=== PATIENT | male | born 1970 | race Caucasian/White ===

== ENCOUNTER 2021-09-28 11:37 | Inpatient (IN) | payer OTHER ==
[2021-09-28] MEDS ORDERED: IBUPROFEN 400 MG TABLET (FP) PO PRN (13:37)
[2021-09-28] MEDS ORDERED: cloNIDine HCL 0.1 MG TABLET PO PRN (13:37)
[2021-09-28] MEDS ORDERED: MENTHOL/PHENOL 1 EACH UD MM PRN (13:37)
[2021-09-28] MEDS ORDERED: BISMUTH SUBSALICYLATE 262 MG/15 ML BTL PO PRN (13:37)
[2021-09-28] MEDS ORDERED: methaDONE HCL 10 MG TABLET (FOR DETOX USE ONLY) PO ONE ×2 (13:37→21:45)
[2021-09-28] MEDS ORDERED: ONDANSETRON *ODT* 4 MG TABLET SL PRN (13:37)
[2021-09-28] MEDS ORDERED: ACETAMINOPHEN 325 MG TABLET (FP) PO PRN (13:37)
[2021-09-28] MEDS ORDERED: MAG HYDROX/AL HYDROX/SIMETH 30 ML UNIT-DOSE CUP PO PRN (13:37)
[2021-09-28] MEDS ORDERED: MAGNESIUM CITRATE 300 ML BOTTLE PO PRN (13:37)
[2021-09-28] MEDS ORDERED: NICOTINE 10 MG CARTRIDGE (INHALER) IH PRN (13:37)
[2021-09-28] MEDS ORDERED: MAGNESIUM HYDROX 2400MG/30ML ORAL SUSPENSION 30 ML CUP PO PRN (13:37)
[2021-09-28 13:54] VITALS: BMI 36.3
[2021-09-28] MEDS: hydrOXYzine PAMOATE 25 MG CAPSULE (FP) PO SCH ×2 (21:57→22:51)
[2021-09-28] MEDS ORDERED: MELATONIN 5 MG TABLETS PO SCH (22:00)
[2021-09-28] MEDS: THIAMINE HCL 100 MG TABLET (FP) PO SCH (22:47)
[2021-09-29] MEDS: hydrOXYzine PAMOATE 25 MG CAPSULE (FP) PO SCH ×5 (06:00→22:38)
[2021-09-29] MEDS ORDERED: methaDONE HCL 10 MG TABLET (FOR DETOX USE ONLY) ONE (09:41)
[2021-09-29 09:59] LABS: HEMATOCRIT 40.7 % (35.4-49); HEMOGLOBIN 13.1 GM/dL (11.7-16.9); MCHC 32.1 g/dl (32.0-35.9); MEAN CELL VOLUME 90.3 fl (80-96); MEAN PLT VOLUME 9.4 fl (7.5-11.1); PLATELET COUNT 252 10^3/uL (134-434); RDW 13.9 % (11.9-15.9); WHITE BLOOD COUNT 7.2 K/mm3 (4.0-10.0)
[2021-09-29 10:12] LABS: ALBUMIN 3.4 g/dl (3.4-5.0); BLOOD UREA NITROGEN 11.8 mg/dL (7-18)
[2021-09-29 10:15] LABS: CALCIUM 8.5 mg/dL (8.5-10.1); CREATININE 1.1 mg/dL (0.55-1.3)
[2021-09-29 10:17] LABS: BILIRUBIN,TOTAL 0.2 mg/dL (0.2-1); TOT PROT 7.6 g/dl (6.4-8.2)
[2021-09-29] MEDS: METHOCARBAMOL 500 MG TABLET PO PRN (10:19)
[2021-09-29] MEDS: PRENATAL VITAMINS W/ FOLIC ACID TABLET (FP) PO SCH (10:20)
[2021-09-29] MEDS: SERTRALINE HCL 50 MG TABLET (FP) PO SCH (12:05)
[2021-09-29] MEDS: ALBUTEROL SO4 HFA INHALER IH PRN (12:06)
[2021-09-29] MEDS: NICOTINE POLACRILEX 4 MG GUM BUC PRN ×2 (12:46→20:09)
[2021-09-29] MEDS: THIAMINE HCL 100 MG TABLET (FP) PO SCH (21:21)
[2021-09-29] MEDS: ACETAMINOPHEN 325 MG TABLET (FP) PO PRN (21:21)
[2021-09-29] MEDS: QUEtiapine FUMARATE 400 MG TABLET PO SCH (21:21)
[2021-09-30] MEDS: hydrOXYzine PAMOATE 25 MG CAPSULE (FP) PO SCH ×5 (06:11→22:06)
[2021-09-30] MEDS ORDERED: methaDONE HCL 10 MG TABLET (FOR DETOX USE ONLY) PO ONE (10:00)
[2021-09-30] MEDS: PRENATAL VITAMINS W/ FOLIC ACID TABLET (FP) PO SCH (10:58)
[2021-09-30] MEDS: SERTRALINE HCL 50 MG TABLET (FP) PO SCH (10:58)
[2021-09-30] MEDS: NICOTINE POLACRILEX 4 MG GUM BUC PRN ×2 (10:59→22:09)
[2021-09-30] MEDS: ACETAMINOPHEN 325 MG TABLET (FP) PO PRN (12:48)
[2021-09-30] MEDS: THIAMINE HCL 100 MG TABLET (FP) PO SCH (22:06)
[2021-09-30] MEDS: QUEtiapine FUMARATE 400 MG TABLET PO SCH (22:06)
[2021-10-01] MEDS: hydrOXYzine PAMOATE 25 MG CAPSULE (FP) PO SCH ×5 (05:21→22:29)
[2021-10-01] MEDS ORDERED: methaDONE HCL 10 MG TABLET (FOR DETOX USE ONLY) ONE (09:13)
[2021-10-01] MEDS ORDERED: LOPERAMIDE HCL 2 MG CAPSULE PO ONE (10:00)
[2021-10-01] MEDS: PRENATAL VITAMINS W/ FOLIC ACID TABLET (FP) PO SCH (10:46)
[2021-10-01] MEDS: SERTRALINE HCL 50 MG TABLET (FP) PO SCH (10:47)
[2021-10-01] MEDS: METHOCARBAMOL 500 MG TABLET PO PRN (10:47)
[2021-10-01] MEDS: NICOTINE POLACRILEX 4 MG GUM BUC PRN ×3 (10:53→20:13)
[2021-10-01] MEDS: ACETAMINOPHEN 325 MG TABLET (FP) PO PRN ×2 (10:54→17:50)
[2021-10-01] MEDS: THIAMINE HCL 100 MG TABLET (FP) PO SCH (22:29)
[2021-10-01] MEDS: QUEtiapine FUMARATE 400 MG TABLET PO SCH (22:29)
[2021-10-02] MEDS: hydrOXYzine PAMOATE 25 MG CAPSULE (FP) PO SCH ×5 (05:38→22:00)
[2021-10-02] MEDS: NICOTINE POLACRILEX 4 MG GUM BUC PRN ×4 (09:30→21:13)
[2021-10-02] MEDS: METHOCARBAMOL 500 MG TABLET PO PRN ×2 (09:31→18:51)
[2021-10-02] MEDS: PRENATAL VITAMINS W/ FOLIC ACID TABLET (FP) PO SCH (09:31)
[2021-10-02] MEDS: SERTRALINE HCL 50 MG TABLET (FP) PO SCH (09:31)
[2021-10-02] MEDS: ACETAMINOPHEN 325 MG TABLET (FP) PO PRN ×2 (09:33→18:52)
[2021-10-02] MEDS: ALBUTEROL SO4 HFA INHALER IH PRN (09:34)
[2021-10-02] MEDS ORDERED: methaDONE HCL 10 MG TABLET (FOR DETOX USE ONLY) PO ONE (10:00)
[2021-10-02] MEDS: VITAMINS A AND D TOPICAL OINTMENT 60 GM TUBE TP SCH ×3 (14:47→21:59)
[2021-10-02] MEDS: QUEtiapine FUMARATE 400 MG TABLET PO SCH (21:59)
[2021-10-02] MEDS: THIAMINE HCL 100 MG TABLET (FP) PO SCH (21:59)
[2021-10-03] MEDS: hydrOXYzine PAMOATE 25 MG CAPSULE (FP) PO SCH ×2 (06:00→10:14)
[2021-10-03] MEDS: VITAMINS A AND D TOPICAL OINTMENT 60 GM TUBE TP SCH ×2 (06:02→10:14)
[2021-10-03] MEDS: NICOTINE POLACRILEX 4 MG GUM BUC PRN ×2 (08:25→10:16)
[2021-10-03 08:58] VITALS: BP 137/75; PULSE 74; TEMP 96.8
[2021-10-03] MEDS: METHOCARBAMOL 500 MG TABLET PO PRN (10:14)
[2021-10-03] MEDS: SERTRALINE HCL 50 MG TABLET (FP) PO SCH (10:14)
[2021-10-03] MEDS: PRENATAL VITAMINS W/ FOLIC ACID TABLET (FP) PO SCH (10:14)
== END 2021-10-03 12:00 | disposition home or self-care (01) | DRG 773 ==
LOC: YASAS 11:37 → Y6N 19:58
PROVIDERS: ADMIT Allergy & Immunology; ATTEND Allergy & Immunology
PROC: HZ2ZZZZ Detoxification Services for Substance Abuse Treatment (ICD-10-PCS; principal; 2021-09-28)
DX: F11.23 Opioid dependence with withdrawal (principal); F10.20 Alcohol dependence, uncomplicated; F14.20 Cocaine dependence, uncomplicated; F17.210 Nicotine dependence, cigarettes, uncomplicated; F19.282 Other psychoactive substance dependence with psychoactive substance-induced sleep disorder; F19.280 Other psychoactive substance dependence with psychoactive substance-induced anxiety disorder; F19.24 Other psychoactive substance dependence with psychoactive substance-induced mood disorder; F25.9 Schizoaffective disorder, unspecified; F34.1 Dysthymic disorder; J45.909 Unspecified asthma, uncomplicated; Z62.810 Personal history of physical and sexual abuse in childhood; Z99.89 Dependence on other enabling machines and devices; Z88.0 Allergy status to penicillin; Z91.018 Allergy to other foods
CPT/HCPCS: 36415; 80053; 85027; 86780; 93005; 93010; C9803; U0003; U0005

== ENCOUNTER 2023-05-03 17:24 | Inpatient (IN) | payer OTHER ==
[2023-05-03 18:05] VITALS: BMI 40.6
[2023-05-03] MEDS ORDERED: NALOXONE (NARCAN) HCL 4 MG/0.1 ML SPRAY NS PRN (21:15)
[2023-05-03] MEDS ORDERED: chlordiazePOXIDE HCL 25 MG CAPSULE PO PRN (21:28)
[2023-05-03] MEDS ORDERED: MAGNESIUM HYDROX 2400MG/30ML ORAL SUSPENSION 30 ML CUP PO PRN (21:31)
[2023-05-03] MEDS ORDERED: POLYETHYLENE GLYCOL (HEALTHYLAX) 3350 17 GM PACKET PO PRN (21:31)
[2023-05-03] MEDS ORDERED: guaiFENesin 600 MG TABLET.ER (FP) PO PRN (21:31)
[2023-05-03] MEDS ORDERED: P-EPHED 60MG/TRIPROLIDI 2.5MG TABLET PO PRN (21:31)
[2023-05-03] MEDS ORDERED: BENZOCAINE/MENTHOL (CHLORASEPTIC ) LOZENGE MM PRN (21:31)
[2023-05-03] MEDS ORDERED: BENZONATATE 200 MG CAPSULE PO PRN (21:31)
[2023-05-03] MEDS ORDERED: LOPERAMIDE HCL 2 MG CAPSULE PO PRN (21:31)
[2023-05-03] MEDS ORDERED: MAG HYDROX/AL HYDROX/SIMETH 30 ML UNIT-DOSE CUP PO PRN (21:31)
[2023-05-03] MEDS ORDERED: DICYCLOMINE HCL 10 MG CAPSULE PO PRN (21:31)
[2023-05-03] MEDS ORDERED: ONDANSETRON *ODT* 4 MG TABLET SL PRN (21:31)
[2023-05-03] MEDS ORDERED: MELATONIN 5 MG TABLETS PO SCH (22:00)
[2023-05-03] MEDS: THIAMINE HCL 100 MG TABLET (FP) PO SCH (22:59)
[2023-05-03] MEDS: chlordiazePOXIDE HCL 25 MG CAPSULE PO SCH (23:00)
[2023-05-04] MEDS: chlordiazePOXIDE HCL 25 MG CAPSULE PO SCH ×4 (05:51→22:32)
[2023-05-04] MEDS: SERTRALINE HCL 50 MG TABLET (FP) PO SCH (10:12)
[2023-05-04] MEDS: PRENATAL VITAMINS W/ FOLIC ACID TABLET (FP) PO SCH (10:12)
[2023-05-04 10:36] LABS: HEMATOCRIT 39.4 % (35.4-49); HEMOGLOBIN 12.5 GM/dL (11.7-16.9); MCH 27.7 pg (25.7-33.7); MCHC 31.7 g/dl (32.0-35.9); MEAN CELL VOLUME 87.5 fl (80-96); MEAN PLT VOLUME 7.9 fl (7.5-11.1); PLATELET COUNT 272 10^3/uL (134-434); RDW 13.5 % (11.9-15.9); WHITE BLOOD COUNT 6.4 K/mm3 (4.0-10.0)
[2023-05-04 10:38] LABS: POTASSIUM 3.8 mmol/L (3.5-5.1)
[2023-05-04 10:40] LABS: BLOOD UREA NITROGEN 8.4 mg/dL (7-18); CALCIUM 8.5 mg/dL (8.5-10.1)
[2023-05-04 10:43] LABS: CREATININE 0.6 mg/dL (0.55-1.3)
[2023-05-04 10:45] LABS: BILIRUBIN,TOTAL 0.4 mg/dL (0.2-1); TOT PROT 7.4 g/dl (6.4-8.2)
[2023-05-04] MEDS ORDERED: chlordiazePOXIDE HCL 25 MG CAPSULE PO PRN (11:52)
[2023-05-04] MEDS: ALBUTEROL SO4 HFA INHALER IH PRN (11:55)
[2023-05-04] MEDS: BUPRENORPHINE/NALOXONE 8 MG/2 MG FILM PACKET SL SCH ×2 (11:56→22:33)
[2023-05-04] MEDS: QUEtiapine FUMARATE 200 MG TABLET PO SCH (22:32)
[2023-05-04] MEDS: THIAMINE HCL 100 MG TABLET (FP) PO SCH (22:32)
[2023-05-04] MEDS: NICOTINE POLACRILEX 2 MG GUM BUC PRN (22:42)
[2023-05-05] MEDS ORDERED: chlordiazePOXIDE HCL 25 MG CAPSULE PO SCH (05:00)
[2023-05-05] MEDS: chlordiazePOXIDE HCL 25 MG CAPSULE PO SCH ×4 (05:55→22:00)
[2023-05-05] MEDS: SERTRALINE HCL 50 MG TABLET (FP) PO SCH (10:20)
[2023-05-05] MEDS: PRENATAL VITAMINS W/ FOLIC ACID TABLET (FP) PO SCH (10:20)
[2023-05-05] MEDS: NICOTINE POLACRILEX 2 MG GUM BUC PRN ×2 (10:22→22:01)
[2023-05-05] MEDS: BUPRENORPHINE/NALOXONE 8 MG/2 MG FILM PACKET SL SCH ×2 (10:22→21:49)
[2023-05-05] MEDS: QUEtiapine FUMARATE 200 MG TABLET PO SCH (21:49)
[2023-05-05] MEDS: THIAMINE HCL 100 MG TABLET (FP) PO SCH (21:49)
[2023-05-05] MEDS: ALBUTEROL SO4 HFA INHALER IH PRN (21:53)
[2023-05-06] MEDS ORDERED: chlordiazePOXIDE HCL 10 MG CAPSULE PO PRN
[2023-05-06] MEDS ORDERED: chlordiazePOXIDE HCL 10 MG CAPSULE PO SCH (05:00)
[2023-05-06] MEDS: chlordiazePOXIDE HCL 10 MG CAPSULE PO SCH ×4 (05:33→22:49)
[2023-05-06] MEDS: ALBUTEROL SO4 HFA INHALER IH PRN ×4 (05:37→23:05)
[2023-05-06] MEDS: SERTRALINE HCL 50 MG TABLET (FP) PO SCH (10:48)
[2023-05-06] MEDS: PRENATAL VITAMINS W/ FOLIC ACID TABLET (FP) PO SCH (10:48)
[2023-05-06] MEDS: BUPRENORPHINE/NALOXONE 8 MG/2 MG FILM PACKET SL SCH ×2 (10:48→22:50)
[2023-05-06] MEDS: NICOTINE POLACRILEX 2 MG GUM BUC PRN ×3 (10:51→17:59)
[2023-05-06] MEDS: ACETAMINOPHEN 325 MG TABLET (FP) PO PRN (17:57)
[2023-05-06] MEDS: QUEtiapine FUMARATE 200 MG TABLET PO SCH (22:50)
[2023-05-06] MEDS: THIAMINE HCL 100 MG TABLET (FP) PO SCH (22:50)
[2023-05-07] MEDS ORDERED: chlordiazePOXIDE HCL 10 MG CAPSULE PO PRN
[2023-05-07] MEDS: NICOTINE POLACRILEX 2 MG GUM BUC PRN ×7 (02:31→23:34)
[2023-05-07] MEDS: ALBUTEROL SO4 HFA INHALER IH PRN ×4 (02:37→17:25)
[2023-05-07] MEDS ORDERED: chlordiazePOXIDE HCL 10 MG CAPSULE PO SCH (05:00)
[2023-05-07] MEDS: chlordiazePOXIDE HCL 10 MG CAPSULE PO SCH ×2 (05:02→17:11)
[2023-05-07] MEDS: SERTRALINE HCL 50 MG TABLET (FP) PO SCH (10:59)
[2023-05-07] MEDS: BUPRENORPHINE/NALOXONE 8 MG/2 MG FILM PACKET SL SCH ×2 (10:59→21:53)
[2023-05-07] MEDS: PRENATAL VITAMINS W/ FOLIC ACID TABLET (FP) PO SCH (10:59)
[2023-05-07] MEDS: ACETAMINOPHEN 325 MG TABLET (FP) PO PRN ×2 (12:22→21:52)
[2023-05-07 21:11] VITALS: RESP 18
[2023-05-07] MEDS: THIAMINE HCL 100 MG TABLET (FP) PO SCH (21:52)
[2023-05-07] MEDS: QUEtiapine FUMARATE 200 MG TABLET PO SCH (21:52)
[2023-05-08] MEDS: NICOTINE POLACRILEX 2 MG GUM BUC PRN ×3 (02:10→09:40)
[2023-05-08] MEDS ORDERED: chlordiazePOXIDE HCL 10 MG CAPSULE PO ONE ×2 (05:00)
[2023-05-08] MEDS: ALBUTEROL SO4 HFA INHALER IH PRN (05:13)
[2023-05-08] MEDS: SERTRALINE HCL 50 MG TABLET (FP) PO SCH (09:39)
[2023-05-08] MEDS: BUPRENORPHINE/NALOXONE 8 MG/2 MG FILM PACKET SL SCH (09:39)
[2023-05-08] MEDS: PRENATAL VITAMINS W/ FOLIC ACID TABLET (FP) PO SCH (09:39)
[2023-05-08 10:00] VITALS: BP 145/81; PULSE 94; TEMP 97.5
== END 2023-05-08 11:16 | disposition other institution (70) | DRG 773 ==
LOC: YASAS 17:24 → Y6N 21:35
PROVIDERS: ADMIT Allergy & Immunology; ATTEND Surgery
PROC: HZ2ZZZZ Detoxification Services for Substance Abuse Treatment (ICD-10-PCS; principal; 2023-05-03)
DX: F10.230 Alcohol dependence with withdrawal, uncomplicated (principal); F11.20 Opioid dependence, uncomplicated; F17.210 Nicotine dependence, cigarettes, uncomplicated; F25.9 Schizoaffective disorder, unspecified; E66.01 Morbid (severe) obesity due to excess calories; Z68.41 Body mass index [BMI] 40.0-44.9, adult; Z99.89 Dependence on other enabling machines and devices
CPT/HCPCS: 36415; 80053; 85027; 86780; 87635; 87811

== ENCOUNTER 2024-01-27 14:24 | Inpatient (IN) | payer OTHER ==
[2024-01-27 14:54] VITALS: BMI 36.6
[2024-01-27] MEDS ORDERED: ALBUTEROL SO4 HFA INHALER IH PRN (15:30)
[2024-01-27] MEDS ORDERED: hydrOXYzine PAMOATE 25 MG CAPSULE (FP) PO PRN (15:31)
[2024-01-27] MEDS ORDERED: guaiFENesin 600 MG TABLET.ER (FP) PO PRN (15:31)
[2024-01-27] MEDS ORDERED: DOCUSATE SODIUM 100 MG CAPSULE (FP) PO PRN (15:31)
[2024-01-27] MEDS ORDERED: POLYETHYLENE GLYCOL (HEALTHYLAX) 3350 17 GM PACKET PO PRN (15:31)
[2024-01-27] MEDS ORDERED: P-EPHED 60MG/TRIPROLIDI 2.5MG TABLET PO PRN (15:31)
[2024-01-27] MEDS ORDERED: NALOXONE HCL (KLOXXADO) 8 MG SPRAY NS PRN (15:31)
[2024-01-27] MEDS ORDERED: MAG HYDROX/AL HYDROX/SIMETH 30 ML UNIT-DOSE CUP PO PRN (15:31)
[2024-01-27] MEDS ORDERED: NALOXONE HCL 0.4 MG/ML VIAL IM PRN (15:31)
[2024-01-27] MEDS ORDERED: LOPERAMIDE HCL 2 MG CAPSULE PO PRN (15:31)
[2024-01-27] MEDS ORDERED: BENZONATATE 200 MG CAPSULE PO PRN (15:31)
[2024-01-27] MEDS ORDERED: MAGNESIUM HYDROX 2400MG/30ML ORAL SUSPENSION 30 ML CUP PO PRN (15:31)
[2024-01-27] MEDS ORDERED: NICOTINE POLACRILEX 2 MG GUM ONE (15:58)
[2024-01-27] MEDS: NICOTINE POLACRILEX 2 MG GUM BUC PRN (16:00)
[2024-01-27] MEDS: PANTOPRAZOLE 20 MG TABLET PO SCH (21:16)
[2024-01-27] MEDS: BUDESONIDE/FORMETEROL FUMARATE 160/4.5 mcg INHALER IH SCH (21:19)
[2024-01-27] MEDS: MONTELUKAST NA 10 MG TABLET PO SCH (21:20)
[2024-01-27] MEDS: GABAPENTIN 400 MG CAPSULE PO SCH (21:20)
[2024-01-27] MEDS: MELATONIN 5 MG TABLETS PO SCH (21:20)
[2024-01-27] MEDS: THIAMINE 100 MG TABLET PO SCH (21:20)
[2024-01-27] MEDS ORDERED: BUDESONIDE/FORMETEROL FUMARATE 80/4.5 mcg INHALER IH SCH (22:00)
[2024-01-28] MEDS ORDERED: predniSONE 10 MG TABLET (UD) PO SCH (10:00)
[2024-01-28] MEDS: predniSONE 40 MG, predniSONE 10 MG PO ONE (10:40)
[2024-01-28] MEDS: PRENATAL VITAMINS W/ FOLIC ACID TABLET (FP) PO SCH (10:40)
[2024-01-28 11:51] LABS: POTASSIUM 4.3 mmol/L (3.5-5.1)
[2024-01-28 11:54] LABS: HEMATOCRIT 32.4 % (35.4-49); HEMOGLOBIN 10.5 GM/dL (11.7-16.9); MCHC 32.3 g/dl (32.0-35.9); MEAN CELL VOLUME 80.5 fl (80-96); MEAN PLT VOLUME 7.8 fl (7.5-11.1); PLATELET COUNT 338 10^3/uL (134-434); RBC 4.03 M/mm3 (4.00-5.60); RDW 16.4 % (11.9-15.9); WHITE BLOOD COUNT 13.8 K/mm3 (4.0-10.0)
[2024-01-28 11:56] LABS: CALCIUM 7.9 mg/dL (8.5-10.1)
[2024-01-28 11:57] LABS: ALBUMIN 2.8 g/dl (3.4-5.0)
[2024-01-28 12:00] LABS: CREATININE 0.6 mg/dL (0.55-1.3)
[2024-01-28 12:02] LABS: BILIRUBIN,TOTAL 0.2 mg/dL (0.2-1); TOT PROT 6.9 g/dl (6.4-8.2)
[2024-01-28] MEDS: QUEtiapine FUMARATE 100 MG TABLET (FP) PO SCH (21:18)
[2024-01-29] MEDS: SERTRALINE HCL 50 MG TABLET (FP) PO SCH (10:25)
[2024-01-29] MEDS: predniSONE 20 MG TABLET (UD) PO SCH (10:25)
[2024-01-29 17:16] LABS: PH,URINE 5.5 (5.0-8.0); URINE APPEARANCE CLEAR; URINE BILIRUBIN NEGATIVE (NEGATIVE); URINE COLOR DK YELLOW; URINE GLUCOSE (UA) NEGATIVE (NEGATIVE); URINE KETONE TRACE (NEGATIVE); URINE LEUK ESTERASE NEGATIVE (NEGATIVE); URINE NITRITE NEGATIVE (NEGATIVE); URINE PROTEIN NEGATIVE (NEGATIVE)
[2024-01-29] MEDS: ACETAMINOPHEN 325 MG TABLET (FP) PO PRN (21:11)
[2024-01-31] MEDS: predniSONE 10 MG TABLET (UD) PO SCH (10:00)
[2024-01-31] MEDS: NICOTINE POLACRILEX 4 MG LOZENGE BC PRN (16:48)
[2024-02-02] MEDS: NICOTINE POLACRILEX 4 MG GUM BUC PRN (09:02)
[2024-02-02] MEDS: predniSONE 20 MG TABLET (UD) PO SCH (09:49)
[2024-02-04] MEDS: predniSONE 10 MG TABLET (UD) PO SCH (09:46)
[2024-02-06] MEDS: predniSONE 5 MG TABLET (UD) PO SCH (09:54)
[2024-02-08] MEDS: BENZOCAINE/MENTHOL (CHLORASEPTIC ) LOZENGE MM PRN (00:14)
[2024-02-13] MEDS: ONDANSETRON *ODT* 4 MG TABLET SL ONE (20:39)
[2024-02-20] MEDS: BUPRENORPHINE/NALOXONE 4 MG/1 MG FILM PACKET SL ONE (14:51)
[2024-02-21 06:51] VITALS: RESP 18
[2024-02-21] MEDS: BUPRENORPHINE/NALOXONE 8 MG/2 MG FILM PACKET SL SCH (09:50)
[2024-02-24 06:52] VITALS: BP 131/72; PULSE 74; TEMP 96
[2024-02-24] MEDS: BUPRENORPHINE/NALOXONE 8 MG/2 MG FILM PACKET SL ONE (12:02)
== END 2024-02-24 12:20 | disposition home or self-care (01) | DRG 772 ==
LOC: YASAS 14:24 → Y3NR 17:59 → Y5N 01-28 13:04
PROVIDERS: ADMIT Allergy & Immunology; ATTEND Psychiatry & Neurology Pain Medicine
PROC: HZ42ZZZ Group Counseling for Substance Abuse Treatment, Cognitive-Behavioral (ICD-10-PCS; principal; 2024-01-27)
DX: F11.20 Opioid dependence, uncomplicated (principal); F14.20 Cocaine dependence, uncomplicated; F17.210 Nicotine dependence, cigarettes, uncomplicated; F25.1 Schizoaffective disorder, depressive type; G62.9 Polyneuropathy, unspecified; R03.0 Elevated blood-pressure reading, without diagnosis of hypertension; Z62.810 Personal history of physical and sexual abuse in childhood; Z63.8 Other specified problems related to primary support group; Z88.0 Allergy status to penicillin
CPT/HCPCS: 36415; 80053; 80305; 80307; 81003; 85027; 86780; 87811; 93005; 93010; Q0162

== ENCOUNTER 2024-03-24 12:17 | Inpatient (IN) | payer OTHER ==
[2024-03-24 13:08] VITALS: BMI 40.5
[2024-03-24] MEDS ORDERED: BENZONATATE 200 MG CAPSULE PO PRN (15:13)
[2024-03-24] MEDS ORDERED: NALOXONE HCL 0.4 MG/ML VIAL IM PRN (15:13)
[2024-03-24] MEDS ORDERED: NALOXONE (NARCAN) HCL 4 MG/0.1 ML SPRAY NS PRN (15:13)
[2024-03-24] MEDS ORDERED: POLYETHYLENE GLYCOL (HEALTHYLAX) 3350 17 GM PACKET PO PRN (15:13)
[2024-03-24] MEDS ORDERED: DICYCLOMINE HCL 10 MG CAPSULE PO PRN (15:13)
[2024-03-24] MEDS ORDERED: IBUPROFEN 600 MG TABLET (FP) PO PRN (15:13)
[2024-03-24] MEDS ORDERED: guaiFENesin 600 MG TABLET.ER (FP) PO PRN (15:13)
[2024-03-24] MEDS ORDERED: BENZOCAINE/MENTHOL (CHLORASEPTIC ) LOZENGE MM PRN (15:13)
[2024-03-24] MEDS ORDERED: LOPERAMIDE HCL 2 MG CAPSULE PO PRN (15:13)
[2024-03-24] MEDS ORDERED: MAGNESIUM HYDROX 2400MG/30ML ORAL SUSPENSION 30 ML CUP PO PRN (15:13)
[2024-03-24] MEDS ORDERED: MAG HYDROX/AL HYDROX/SIMETH 30 ML UNIT-DOSE CUP PO PRN (15:13)
[2024-03-24] MEDS ORDERED: IBUPROFEN 400 MG TABLET (FP) PO PRN (15:13)
[2024-03-24] MEDS ORDERED: ONDANSETRON *ODT* 4 MG TABLET SL PRN (15:13)
[2024-03-24] MEDS ORDERED: NICOTINE POLACRILEX 2 MG GUM ONE (16:59)
[2024-03-24] MEDS: NICOTINE POLACRILEX 4 MG GUM BUC PRN (17:00)
[2024-03-24] MEDS ORDERED: methaDONE HCL 10 MG TABLET (FOR DETOX USE ONLY) ONE (17:01)
[2024-03-24] MEDS: methaDONE HCL 10 MG TABLET (FOR DETOX USE ONLY) PO ONE (17:03)
[2024-03-24] MEDS: cloNIDine HCL 0.1 MG TABLET PO SCH (18:26)
[2024-03-24] MEDS: ACETAMINOPHEN 325 MG TABLET (FP) PO PRN (18:27)
[2024-03-24] MEDS: BUDESONIDE/FORMETEROL FUMARATE 160/4.5 mcg INHALER IH SCH (22:17)
[2024-03-24] MEDS: MELATONIN 5 MG TABLETS PO SCH (22:19)
[2024-03-24] MEDS: THIAMINE 100 MG TABLET PO SCH (22:19)
[2024-03-24] MEDS: PANTOPRAZOLE 20 MG TABLET PO SCH (22:20)
[2024-03-24] MEDS: METHOCARBAMOL 500 MG TABLET PO PRN (22:20)
[2024-03-24] MEDS: QUEtiapine FUMARATE 200 MG TABLET PO ONE (22:20)
[2024-03-24] MEDS: GABAPENTIN 400 MG CAPSULE PO SCH (22:20)
[2024-03-24] MEDS: BUPRENORPHINE/NALOXONE 0.5 MG/0.125 MG FILM SL ONE (22:21)
[2024-03-25] MEDS: hydrOXYzine PAMOATE 25 MG CAPSULE (FP) PO PRN (09:51)
[2024-03-25] MEDS: PRENATAL VITAMINS W/ FOLIC ACID TABLET (FP) PO SCH (09:54)
[2024-03-25 11:59] LABS: CHLORIDE 103 mmol/L (98-107); POTASSIUM 3.4 mmol/L (3.5-5.1); SODIUM 139 mmol/L (136-145)
[2024-03-25 12:07] LABS: ALBUMIN 3.2 g/dl (3.4-5.0); ANION GAP 8 mmol/L (4-13); CALCIUM 8.7 mg/dL (8.5-10.1); CO2 28 mmol/L (21-32); GLUCOSE,RANDOM 179 mg/dL (74-106); HEMATOCRIT 34.6 % (35.4-49); MCH 24.4 pg (25.7-33.7); MCHC 31.7 g/dl (32.0-35.9); MEAN CELL VOLUME 76.9 fl (80-96); MEAN PLT VOLUME 7.8 fl (7.5-11.1); PLATELET COUNT 319 10^3/uL (134-434); WHITE BLOOD COUNT 7.2 K/mm3 (4.0-10.0)
[2024-03-25 12:10] LABS: CREATININE 0.9 mg/dL (0.55-1.3); SGOT/AST 21 U/L (15-37); SGPT/ALT 30 U/L (13-61)
[2024-03-25 12:11] LABS: BILIRUBIN,TOTAL 0.3 mg/dL (0.2-1); TOT PROT 7.6 g/dl (6.4-8.2)
[2024-03-25 12:13] LABS: ALK PHOS 134 U/L (45-117)
[2024-03-25] MEDS: BUPRENORPHINE/NALOXONE 0.5 MG/0.125 MG FILM SL SCH (12:48)
[2024-03-25] MEDS: BISMUTH SUBSALICYLATE 262 MG/15 ML BTL PO PRN (17:39)
[2024-03-25] MEDS: QUEtiapine FUMARATE 200 MG TABLET PO SCH (22:13)
[2024-03-26] MEDS: SERTRALINE HCL 50 MG TABLET (FP) PO SCH (09:32)
[2024-03-26] MEDS: methaDONE HCL 10 MG TABLET (FOR DETOX USE ONLY) PO ONE (09:32)
[2024-03-26] MEDS: BUPRENORPHINE/NALOXONE 2 MG/0.5 MG FILM PACKET SL SCH (09:33)
[2024-03-26] MEDS: POTASSIUM CHLORIDE ORAL LIQUID 20 MEQ/15 ML PO ONE ×2 (11:11→11:31)
[2024-03-26] MEDS ORDERED: BUDESONIDE/FORMETEROL FUMARATE 80/4.5 mcg INHALER IH SCH (11:15)
[2024-03-26] MEDS: MONTELUKAST NA 10 MG TABLET PO SCH (22:18)
[2024-03-27] MEDS: BUPRENORPHINE/NALOXONE 4 MG/1 MG FILM PACKET SL SCH (10:16)
[2024-03-27] MEDS: ALBUTEROL SO4 HFA INHALER IH PRN (20:00)
[2024-03-28] MEDS: methaDONE HCL 10 MG TABLET (FOR DETOX USE ONLY) PO ONE (09:12)
[2024-03-28] MEDS: BUPRENORPHINE/NALOXONE 8 MG/2 MG FILM PACKET SL SCH (09:12)
[2024-03-29 09:04] VITALS: BP 142/70; PULSE 83; RESP 18; TEMP 97.8
[2024-03-29] MEDS: BUPRENORPHINE/NALOXONE 8 MG/2 MG FILM PACKET SL SCH (09:22)
== END 2024-03-29 11:54 | disposition other institution (70) | DRG 773 ==
LOC: YASAS 12:17 → Y3N 16:45
PROVIDERS: ADMIT Allergy & Immunology; ATTEND Surgery
PROC: HZ2ZZZZ Detoxification Services for Substance Abuse Treatment (ICD-10-PCS; principal; 2024-03-24)
DX: F11.23 Opioid dependence with withdrawal (principal); F14.20 Cocaine dependence, uncomplicated; F12.20 Cannabis dependence, uncomplicated; F17.210 Nicotine dependence, cigarettes, uncomplicated; F25.1 Schizoaffective disorder, depressive type; G62.9 Polyneuropathy, unspecified; G47.00 Insomnia, unspecified; Z62.810 Personal history of physical and sexual abuse in childhood; Z63.8 Other specified problems related to primary support group; Z99.89 Dependence on other enabling machines and devices
CPT/HCPCS: 36415; 80053; 80305; 80307; 85027; 86780

== ENCOUNTER 2024-03-29 12:10 | Inpatient (IN) | payer OTHER ==
[2024-03-29] MEDS: NICOTINE POLACRILEX 4 MG LOZENGE BC PRN (15:30)
[2024-03-29] MEDS: LOPERAMIDE HCL 2 MG CAPSULE PO PRN (17:48)
[2024-03-29] MEDS: MAG HYDROX/AL HYDROX/SIMETH 30 ML UNIT-DOSE CUP PO ONE (17:49)
[2024-03-29] MEDS: MONTELUKAST NA 10 MG TABLET PO SCH (21:16)
[2024-03-29] MEDS: QUEtiapine FUMARATE 200 MG TABLET PO SCH (21:16)
[2024-03-29] MEDS: PANTOPRAZOLE 20 MG TABLET PO SCH (21:16)
[2024-03-29] MEDS: BUDESONIDE/FORMETEROL FUMARATE 80/4.5 mcg INHALER IH SCH (21:17)
[2024-03-29] MEDS: BUPRENORPHINE/NALOXONE 8 MG/2 MG FILM PACKET SL ONE (22:20)
[2024-03-29] MEDS ORDERED: NALOXONE (NYS OPIOID OVERDOSE PROGRAM) 4 MG/0.1 ML SPRAY NS PRN (23:29)
[2024-03-29] MEDS ORDERED: MAGNESIUM HYDROX 2400MG/30ML ORAL SUSPENSION 30 ML CUP PO PRN (23:29)
[2024-03-29] MEDS ORDERED: BENZONATATE 200 MG CAPSULE PO PRN (23:29)
[2024-03-29] MEDS ORDERED: guaiFENesin 600 MG TABLET.ER (FP) PO PRN (23:29)
[2024-03-29] MEDS ORDERED: NALOXONE HCL 0.4 MG/ML VIAL IVPUSH PRN (23:29)
[2024-03-29] MEDS: MELATONIN 5 MG TABLETS PO SCH (23:52)
[2024-03-30] MEDS: PRENATAL VITAMINS W/ FOLIC ACID TABLET (FP) PO SCH (06:04)
[2024-03-30] MEDS: NICOTINE 14 MG/24 HOURS TOPICAL PATCH TD SCH (10:00)
[2024-03-30] MEDS: SERTRALINE HCL 50 MG TABLET (FP) PO SCH (10:06)
[2024-03-30] MEDS: BUPRENORPHINE/NALOXONE 8 MG/2 MG FILM PACKET SL SCH (11:15)
[2024-03-30] MEDS: GABAPENTIN 400 MG CAPSULE PO SCH (14:24)
[2024-03-30] MEDS: THIAMINE 100 MG TABLET PO SCH (21:08)
[2024-03-31 00:30] LABS: PH,URINE 8.5 (5.0-8.0); URINE APPEARANCE CLEAR; URINE BILIRUBIN NEGATIVE (NEGATIVE); URINE COLOR YELLOW; URINE GLUCOSE (UA) NEGATIVE (NEGATIVE); URINE KETONE NEGATIVE (NEGATIVE); URINE LEUK ESTERASE NEGATIVE (NEGATIVE); URINE NITRITE NEGATIVE (NEGATIVE); URINE PROTEIN NEGATIVE (NEGATIVE); URINE UROBILINOGEN 0.2 mg/dL (0.2-1.0)
[2024-04-01] MEDS ORDERED: NICOTINE 14 MG/24 HOURS TOPICAL PATCH TD PRN (13:41)
[2024-04-01] MEDS: NICOTINE POLACRILEX 4 MG GUM BUC PRN (16:43)
[2024-04-02] MEDS: ACETAMINOPHEN 325 MG TABLET (FP) PO PRN (09:03)
[2024-04-04] MEDS: ALBUTEROL SO4 HFA INHALER IH PRN (04:20)
[2024-04-13] MEDS: BUPRENORPHINE/NALOXONE 8 MG/2 MG FILM PACKET SL SCH (22:21)
[2024-04-14] MEDS: GABAPENTIN 400 MG CAPSULE PO SCH (15:06)
[2024-04-25] MEDS: BENZOCAINE/MENTHOL (CHLORASEPTIC ) LOZENGE MM PRN (00:54)
[2024-04-26] MEDS: POLYETHYLENE GLYCOL (HEALTHYLAX) 3350 17 GM PACKET PO PRN (03:47)
[2024-04-27 06:36] VITALS: BP 112/72; PULSE 72; RESP 16; TEMP 97.4
== END 2024-04-27 12:40 | disposition home or self-care (01) | DRG 772 ==
LOC: YASAS 12:10 → Y3NR 12:11 → Y3E 03-31 12:31
PROVIDERS: ADMIT Allergy & Immunology; ATTEND Psychiatry & Neurology Pain Medicine
PROC: HZ42ZZZ Group Counseling for Substance Abuse Treatment, Cognitive-Behavioral (ICD-10-PCS; principal; 2024-03-29)
DX: F11.20 Opioid dependence, uncomplicated (principal); F10.20 Alcohol dependence, uncomplicated; F14.20 Cocaine dependence, uncomplicated; F25.1 Schizoaffective disorder, depressive type; J45.909 Unspecified asthma, uncomplicated; G62.9 Polyneuropathy, unspecified; R60.0 Localized edema; R26.2 Difficulty in walking, not elsewhere classified; Z99.89 Dependence on other enabling machines and devices; Z86.19 Personal history of other infectious and parasitic diseases; Z88.0 Allergy status to penicillin; Z91.013 Allergy to seafood; Z88.6 Allergy status to analgesic agent
CPT/HCPCS: 36415; 81003; 82962; 86803; 87522; 87811

== ENCOUNTER 2024-07-08 12:06 | Inpatient (IN) | payer OTHER ==
[2024-07-08 12:39] VITALS: BMI 39.6
[2024-07-08] MEDS ORDERED: LOPERAMIDE HCL 2 MG CAPSULE PO PRN (13:11)
[2024-07-08] MEDS ORDERED: BENZONATATE 200 MG CAPSULE PO PRN (13:11)
[2024-07-08] MEDS ORDERED: METHOCARBAMOL 500 MG TABLET PO PRN (13:11)
[2024-07-08] MEDS ORDERED: P-EPHED 60MG/TRIPROLIDI 2.5MG TABLET PO PRN (13:11)
[2024-07-08] MEDS ORDERED: guaiFENesin 600 MG TABLET.ER (FP) PO PRN (13:11)
[2024-07-08] MEDS ORDERED: NALOXONE HCL 0.4 MG/ML VIAL IVPUSH PRN (13:11)
[2024-07-08] MEDS ORDERED: POLYETHYLENE GLYCOL (HEALTHYLAX) 3350 17 GM PACKET PO PRN (13:11)
[2024-07-08] MEDS ORDERED: hydrOXYzine PAMOATE 25 MG CAPSULE (FP) PO PRN (13:11)
[2024-07-08] MEDS ORDERED: MAGNESIUM HYDROX 2400MG/30ML ORAL SUSPENSION 30 ML CUP PO PRN (13:11)
[2024-07-08] MEDS ORDERED: BENZOCAINE/MENTHOL (CHLORASEPTIC ) LOZENGE MM PRN (13:11)
[2024-07-08] MEDS ORDERED: ALBUTEROL SO4 2.5/IPRATROPIUM 0.5 INH SOL 3 ML VIAL.NEB. NEB PRN (13:45)
[2024-07-08] MEDS: NICOTINE POLACRILEX 4 MG GUM BUC PRN (16:00)
[2024-07-08] MEDS: PANTOPRAZOLE 20 MG TABLET PO SCH (17:21)
[2024-07-08] MEDS: TUBERCULIN PPD 5 TU/0.1ML VIAL ID ONE (17:22)
[2024-07-08] MEDS: ACETAMINOPHEN 325 MG TABLET (FP) PO PRN (19:08)
[2024-07-08] MEDS: QUEtiapine FUMARATE 200 MG TABLET PO SCH (21:28)
[2024-07-08] MEDS: MELATONIN 5 MG TABLETS PO SCH (21:28)
[2024-07-08] MEDS: MONTELUKAST NA 10 MG TABLET PO SCH (21:28)
[2024-07-08] MEDS: BUDESONIDE/FORMETEROL FUMARATE 80/4.5 mcg INHALER IH SCH (21:28)
[2024-07-08] MEDS: THIAMINE 100 MG TABLET PO SCH (21:28)
[2024-07-09] MEDS: PRENATAL VITAMINS W/ FOLIC ACID TABLET (FP) PO SCH (05:51)
[2024-07-09] MEDS: NALOXONE (NARCAN) HCL 4 MG/0.1 ML SPRAY NS PRN (05:52)
[2024-07-09] MEDS: SERTRALINE HCL 50 MG TABLET (FP) PO SCH (09:06)
[2024-07-09] MEDS: ALBUTEROL SO4 HFA INHALER IH PRN (09:07)
[2024-07-09] MEDS: FLU VACCINE (FLULAVAL) PF 45 MCG/0.5 ML SYRINGE 2024-2025 IM ONE (11:04)
[2024-07-10 11:27] LABS: HEMATOCRIT 36.3 % (35.4-49); MCH 24.8 pg (25.7-33.7); MCHC 30.4 g/dl (32.0-35.9); MEAN CELL VOLUME 81.5 fl (80-96); MEAN PLT VOLUME 7.5 fl (7.5-11.1); PLATELET COUNT 267 10^3/uL (134-434); RBC 4.45 M/mm3 (4.00-5.60); RDW 18.3 % (11.9-15.9); WHITE BLOOD COUNT 10.9 K/mm3 (4.0-10.0)
[2024-07-10 11:33] LABS: POTASSIUM 3.8 mmol/L (3.5-5.1)
[2024-07-10 11:38] LABS: ALBUMIN 2.7 g/dl (3.4-5.0); CALCIUM 7.8 mg/dL (8.5-10.1)
[2024-07-10 11:39] LABS: BLOOD UREA NITROGEN 16.5 mg/dL (7-18)
[2024-07-10 11:41] LABS: CREATININE 0.8 mg/dL (0.55-1.3)
[2024-07-10 11:43] LABS: BILIRUBIN,TOTAL 0.4 mg/dL (0.2-1); TOT PROT 6.5 g/dl (6.4-8.2)
[2024-07-13] MEDS: GABAPENTIN 400 MG CAPSULE PO SCH (14:38)
[2024-07-17] MEDS ORDERED: NALOXONE (NYS OPIOID OVERDOSE PROGRAM) 4 MG/0.1 ML SPRAY NS PRN (08:08)
[2024-07-17] MEDS: NALOXONE (NARCAN) HCL 4 MG/0.1 ML SPRAY NS ONE (09:05)
[2024-07-17] MEDS: MAG HYDROX/AL HYDROX/SIMETH 30 ML UNIT-DOSE CUP PO PRN (18:39)
[2024-07-17] MEDS: CLINDAMYCIN HCL 150 MG CAPSULE (FP) PO SCH (21:04)
[2024-07-18] MEDS ORDERED: ALBUTEROL SO4 2.5/IPRATROPIUM 0.5 INH SOL 3 ML VIAL.NEB. NEB PRN (09:11)
[2024-07-23] MEDS: VITAMINS A AND D TOPICAL OINTMENT TP SCH (17:15)
[2024-07-24 07:11] VITALS: BP 102/63; PULSE 81; RESP 17; TEMP 97.8
[2024-07-24] MEDS: NALOXONE (NYS OPIOID OVERDOSE PROGRAM) 4 MG/0.1 ML SPRAY NS SCH (08:45)
== END 2024-07-24 10:57 | disposition home or self-care (01) | DRG 772 ==
LOC: YASAS 12:06 → Y3NR 14:23 → Y3E 15:36
PROVIDERS: ADMIT Allergy & Immunology; ATTEND Psychiatry & Neurology Pain Medicine
PROC: HZ42ZZZ Group Counseling for Substance Abuse Treatment, Cognitive-Behavioral (ICD-10-PCS; principal; 2024-07-08)
DX: F11.20 Opioid dependence, uncomplicated (principal); F10.20 Alcohol dependence, uncomplicated; F17.210 Nicotine dependence, cigarettes, uncomplicated; F25.1 Schizoaffective disorder, depressive type; F19.282 Other psychoactive substance dependence with psychoactive substance-induced sleep disorder; F19.24 Other psychoactive substance dependence with psychoactive substance-induced mood disorder; G62.9 Polyneuropathy, unspecified; J45.20 Mild intermittent asthma, uncomplicated; K21.9 Gastro-esophageal reflux disease without esophagitis; L03.115 Cellulitis of right lower limb; L03.116 Cellulitis of left lower limb; N40.0 Benign prostatic hyperplasia without lower urinary tract symptoms; R60.0 Localized edema; Z88.0 Allergy status to penicillin
CPT/HCPCS: 36415; 80053; 80305; 80307; 82962; 85027; 86780; 87811; 90656; G0009

== ENCOUNTER 2024-07-17 13:27 | Emergency (ER) | payer OTHER ==
[2024-07-17 13:46] VITALS: TEMP 98.1; BMI 39.6
[2024-07-17 15:03] LABS: BASO % 0.8 % (0-2.0); HEMATOCRIT 33.8 % (35.4-49); HEMOGLOBIN 10.6 GM/dL (11.7-16.9); LYMPH % 24.3 % (8-40); MCH 25.1 pg (25.7-33.7); MCHC 31.3 g/dl (32.0-35.9); MEAN CELL VOLUME 80.3 fl (80-96); MEAN PLT VOLUME 7.4 fl (7.5-11.1); MONO % 9.2 % (3.8-10.2); NEUT % 61.7 % (42.8-82.8); PLATELET COUNT 208 10^3/uL (134-434); RBC 4.21 M/mm3 (4.00-5.60); RDW 18.1 % (11.9-15.9); WHITE BLOOD COUNT 7.4 K/mm3 (4.0-10.0)
[2024-07-17 15:18] LABS: POTASSIUM 4.6 mmol/L (3.5-5.1)
[2024-07-17 15:20] LABS: CALCIUM 7.9 mg/dL (8.5-10.1)
[2024-07-17 15:21] LABS: ALBUMIN 2.6 g/dl (3.4-5.0); BLOOD UREA NITROGEN 12.8 mg/dL (7-18); MAGNESIUM 1.9 mg/dL (1.8-2.4)
[2024-07-17 15:24] LABS: CREATININE 0.7 mg/dL (0.55-1.3)
[2024-07-17 15:25] LABS: BILIRUBIN,TOTAL 0.3 mg/dL (0.2-1); TOT PROT 6.7 g/dl (6.4-8.2)
[2024-07-17] MEDS ORDERED: CLINDAMYCIN HCL 150 MG CAPSULE (FP) ONE (15:49)
[2024-07-17] MEDS: CLINDAMYCIN HCL 300 MG CAPSULE PO ONE (15:51)
[2024-07-17 16:49] VITALS: BP 110/55; PULSE 78; RESP 18
== END 2024-07-17 16:50 | disposition home or self-care (01) ==
LOC: JER 13:27
DX: L03.115 Cellulitis of right lower limb (principal); M79.89 Other specified soft tissue disorders
CPT/HCPCS: 36415; 80053; 83605; 83735; 85025; 87040; 99283-25

== ENCOUNTER 2024-10-20 11:27 | Inpatient (IN) | payer OTHER ==
[2024-10-20 11:47] VITALS: BMI 36.6
[2024-10-20] MEDS ORDERED: POLYETHYLENE GLYCOL (HEALTHYLAX) 3350 17 GM PACKET PO PRN (12:10)
[2024-10-20] MEDS ORDERED: BENZONATATE 200 MG CAPSULE PO PRN (12:10)
[2024-10-20] MEDS ORDERED: guaiFENesin 600 MG TABLET.ER (FP) PO PRN (12:10)
[2024-10-20] MEDS ORDERED: BENZOCAINE/MENTHOL (CHLORASEPTIC ) LOZENGE MM PRN (12:10)
[2024-10-20] MEDS ORDERED: MAGNESIUM HYDROX 2400MG/30ML ORAL SUSPENSION 30 ML CUP PO PRN (12:10)
[2024-10-20] MEDS ORDERED: LOPERAMIDE HCL 2 MG CAPSULE PO PRN (12:10)
[2024-10-20] MEDS ORDERED: MAG HYDROX/AL HYDROX/SIMETH 30 ML UNIT-DOSE CUP PO PRN (12:10)
[2024-10-20] MEDS ORDERED: NALOXONE (NARCAN) HCL 4 MG/0.1 ML SPRAY NS PRN (12:10)
[2024-10-20] MEDS ORDERED: NICOTINE POLACRILEX 2 MG GUM ONE (12:29)
[2024-10-20] MEDS: NICOTINE POLACRILEX 2 MG GUM BUC PRN (12:30)
[2024-10-20] MEDS ORDERED: ALBUTEROL SO4 HFA INHALER IH PRN (12:56)
[2024-10-20] MEDS: PANTOPRAZOLE 20 MG TABLET PO SCH (13:20)
[2024-10-20] MEDS: NICOTINE POLACRILEX 2 MG LOZENGE BC PRN (14:07)
[2024-10-20 20:25] LABS: URINE APPEARANCE CLEAR; URINE BILIRUBIN NEGATIVE (NEGATIVE); URINE COLOR YELLOW; URINE GLUCOSE (UA) NEGATIVE (NEGATIVE)
[2024-10-20 20:26] LABS: PH,URINE 5.5 (5.0-8.0); URINE KETONE NEGATIVE (NEGATIVE); URINE LEUK ESTERASE NEGATIVE (NEGATIVE); URINE NITRITE NEGATIVE (NEGATIVE); URINE PROTEIN NEGATIVE (NEGATIVE); URINE UROBILINOGEN 0.2 mg/dL (0.2-1.0)
[2024-10-20] MEDS ORDERED: QUEtiapine FUMARATE 100 MG TABLET (FP) ONE (20:31)
[2024-10-20] MEDS: THIAMINE 100 MG TABLET PO SCH (21:04)
[2024-10-20] MEDS: QUEtiapine FUMARATE 300 MG TABLET PO SCH (21:04)
[2024-10-20] MEDS: MONTELUKAST NA 10 MG TABLET PO SCH (21:04)
[2024-10-20] MEDS: GABAPENTIN 300 MG CAPSULE PO SCH (21:04)
[2024-10-20] MEDS: MELATONIN 5 MG TABLETS PO SCH (21:04)
[2024-10-20] MEDS: BUDESONIDE/FORMETEROL FUMARATE 80/4.5 mcg INHALER IH SCH (21:04)
[2024-10-21] MEDS: QUEtiapine FUMARATE 100 MG TABLET (FP) PO SCH (10:29)
[2024-10-21] MEDS: SERTRALINE HCL 50 MG TABLET (FP) PO SCH (10:29)
[2024-10-21] MEDS: FOLIC ACID 1 MG TABLET (FP) PO SCH (10:29)
[2024-10-21] MEDS: PRENATAL VITAMINS W/ FOLIC ACID TABLET (FP) PO SCH (10:29)
[2024-10-21 11:10] LABS: POTASSIUM 3.9 mmol/L (3.5-5.1)
[2024-10-21 11:15] LABS: CALCIUM 8.6 mg/dL (8.5-10.1)
[2024-10-21 11:16] LABS: ALBUMIN 3.4 g/dl (3.4-5.0); BLOOD UREA NITROGEN 14.4 mg/dL (7-18)
[2024-10-21 11:19] LABS: CREATININE 0.9 mg/dL (0.55-1.3)
[2024-10-21 11:20] LABS: BILIRUBIN,TOTAL 0.6 mg/dL (0.2-1); TOT PROT 7.8 g/dl (6.4-8.2)
[2024-10-21 11:27] LABS: HEMOGLOBIN 13.9 GM/dL (11.7-16.9); MCH 26.8 pg (25.7-33.7); MCHC 31.6 g/dl (32.0-35.9); MEAN CELL VOLUME 84.8 fl (80-96); MEAN PLT VOLUME 8.2 fl (7.5-11.1); PLATELET COUNT 234 10^3/uL (134-434); RBC 5.19 M/mm3 (4.00-5.60); RDW 16.5 % (11.9-15.9); WHITE BLOOD COUNT 8.8 K/mm3 (4.0-10.0)
[2024-10-21 12:07] LABS: HIV INTERPRETATION NEGATIVE (NEGATIVE)
[2024-10-21] MEDS: VITAMINS A AND D TOPICAL OINTMENT TP SCH (17:35)
[2024-10-21] MEDS ORDERED: QUEtiapine FUMARATE 100 MG TABLET (FP) ONE (21:32)
[2024-10-22] MEDS: TAMSULOSIN HCL 0.4 MG CAP PO SCH (07:32)
[2024-10-23] MEDS ORDERED: QUEtiapine FUMARATE 100 MG TABLET (FP) ONE (21:25)
[2024-10-24] MEDS ORDERED: QUEtiapine FUMARATE 100 MG TABLET (FP) ONE (19:00)
[2024-10-26] MEDS ORDERED: QUEtiapine FUMARATE 50 MG TABLET ONE (09:09)
[2024-10-26] MEDS: NICOTINE POLACRILEX 4 MG GUM BUC PRN (09:56)
[2024-10-27] MEDS: NICOTINE POLACRILEX 4 MG LOZENGE BC PRN (01:01)
[2024-10-27] MEDS ORDERED: QUEtiapine FUMARATE 100 MG TABLET (FP) ONE (21:32)
[2024-10-28] MEDS ORDERED: QUEtiapine FUMARATE 100 MG TABLET (FP) ONE (21:07)
[2024-10-29] MEDS ORDERED: QUEtiapine FUMARATE 100 MG TABLET (FP) ONE (21:19)
[2024-10-30] MEDS ORDERED: QUEtiapine FUMARATE 100 MG TABLET (FP) ONE (20:23)
[2024-10-31] MEDS: ACETAMINOPHEN 325 MG TABLET (FP) PO PRN (21:24)
[2024-11-01] MEDS ORDERED: QUEtiapine FUMARATE 50 MG TABLET ONE (09:00)
[2024-11-02] MEDS ORDERED: QUEtiapine FUMARATE 50 MG TABLET ONE (08:52)
[2024-11-03] MEDS ORDERED: QUEtiapine FUMARATE 100 MG TABLET (FP) ONE (21:15)
[2024-11-04] MEDS ORDERED: QUEtiapine FUMARATE 100 MG TABLET (FP) ONE (21:10)
[2024-11-06] MEDS ORDERED: QUEtiapine FUMARATE 100 MG TABLET (FP) ONE (21:22)
[2024-11-08] MEDS ORDERED: QUEtiapine FUMARATE 100 MG TABLET (FP) ONE (20:42)
[2024-11-09] MEDS ORDERED: QUEtiapine FUMARATE 100 MG TABLET (FP) ONE (20:17)
[2024-11-10] MEDS ORDERED: VITAMINS A AND D TOPICAL OINTMENT TP PRN (16:19)
[2024-11-10] MEDS ORDERED: QUEtiapine FUMARATE 100 MG TABLET (FP) ONE (20:46)
[2024-11-11] MEDS ORDERED: QUEtiapine FUMARATE 100 MG TABLET (FP) ONE (21:06)
[2024-11-11] MEDS: BUPRENORPHINE/NALOXONE 8 MG/2 MG FILM PACKET SL SCH (21:06)
[2024-11-13] MEDS ORDERED: QUEtiapine FUMARATE 100 MG TABLET (FP) ONE (20:23)
[2024-11-14] MEDS ORDERED: QUEtiapine FUMARATE 100 MG TABLET (FP) ONE (21:22)
[2024-11-15 06:21] VITALS: TEMP 97.1
[2024-11-15] MEDS ORDERED: QUEtiapine FUMARATE 100 MG TABLET (FP) ONE (20:14)
[2024-11-16 05:31] VITALS: BP 120/81; PULSE 77; RESP 16
[2024-11-16] MEDS ORDERED: QUEtiapine FUMARATE 50 MG TABLET ONE (09:04)
[2024-11-16] MEDS: BUPRENORPHINE/NALOXONE 8 MG/2 MG FILM PACKET SL ONE (09:06)
== END 2024-11-16 09:32 | disposition home or self-care (01) | DRG 772 ==
LOC: YASAS 11:27 → Y3W 12:33
PROVIDERS: ADMIT Psychiatry & Neurology Pain Medicine; ATTEND Psychiatry & Neurology Pain Medicine
PROC: HZ42ZZZ Group Counseling for Substance Abuse Treatment, Cognitive-Behavioral (ICD-10-PCS; principal; 2024-10-20)
DX: F10.20 Alcohol dependence, uncomplicated (principal); F11.20 Opioid dependence, uncomplicated; F14.20 Cocaine dependence, uncomplicated; F17.210 Nicotine dependence, cigarettes, uncomplicated; F25.1 Schizoaffective disorder, depressive type; G62.9 Polyneuropathy, unspecified; K21.9 Gastro-esophageal reflux disease without esophagitis; F19.282 Other psychoactive substance dependence with psychoactive substance-induced sleep disorder; F19.24 Other psychoactive substance dependence with psychoactive substance-induced mood disorder; M16.12 Unilateral primary osteoarthritis, left hip; N40.0 Benign prostatic hyperplasia without lower urinary tract symptoms; R60.0 Localized edema; Z99.89 Dependence on other enabling machines and devices; Z88.0 Allergy status to penicillin
CPT/HCPCS: 36415; 80053; 80305; 81003; 85027; 86780; 86803; 87389; 87522; 87811; 93005; 93010

== ENCOUNTER 2025-04-12 12:22 | Inpatient (IN) | payer OTHER ==
[2025-04-12] MEDS ORDERED: NALOXONE (NARCAN) HCL 4 MG/0.1 ML SPRAY NS PRN (14:58)
[2025-04-12] MEDS ORDERED: guaiFENesin 600 MG TABLET.ER (FP) PO PRN (14:58)
[2025-04-12] MEDS ORDERED: MAGNESIUM HYDROX 2400MG/30ML ORAL SUSPENSION 30 ML CUP PO PRN (14:58)
[2025-04-12] MEDS ORDERED: BENZOCAINE/MENTHOL (CHLORASEPTIC ) LOZENGE MM PRN (14:58)
[2025-04-12] MEDS ORDERED: BENZONATATE 200 MG CAPSULE PO PRN (14:58)
[2025-04-12] MEDS ORDERED: LOPERAMIDE HCL 2 MG CAPSULE PO PRN (14:58)
[2025-04-12] MEDS ORDERED: METHOCARBAMOL 500 MG TABLET PO PRN (14:58)
[2025-04-12] MEDS ORDERED: NALOXONE HCL 0.4 MG/ML VIAL IVPUSH PRN (14:58)
[2025-04-12] MEDS ORDERED: hydrOXYzine PAMOATE 25 MG CAPSULE (FP) PO PRN (14:58)
[2025-04-12] MEDS ORDERED: POLYETHYLENE GLYCOL (HEALTHYLAX) 3350 17 GM PACKET PO PRN (14:58)
[2025-04-12] MEDS: NICOTINE POLACRILEX 2 MG GUM BUC PRN (20:07)
[2025-04-12] MEDS: GABAPENTIN 300 MG CAPSULE PO SCH (21:44)
[2025-04-12] MEDS: MELATONIN 5 MG TABLETS PO SCH (21:44)
[2025-04-12] MEDS: BUDESONIDE/FORMETEROL FUMARATE 80/4.5 mcg INHALER IH SCH (21:44)
[2025-04-12] MEDS: THIAMINE 100 MG TABLET PO SCH (21:44)
[2025-04-13] MEDS: PANTOPRAZOLE 20 MG TABLET PO SCH (09:47)
[2025-04-13] MEDS: PRENATAL VITAMINS W/ FOLIC ACID TABLET (FP) PO SCH (09:47)
[2025-04-14] MEDS: SERTRALINE HCL 50 MG TABLET (FP) PO SCH (10:03)
[2025-04-14] MEDS: NICOTINE POLACRILEX 2 MG GUM BUC PRN (10:58)
[2025-04-15] MEDS: CLINDAMYCIN PHOSPHATE 1% TOPICAL GEL 30 GM TUBE TP SCH (10:47)
[2025-04-18] MEDS: MAG HYDROX/AL HYDROX/SIMETH 30 ML UNIT-DOSE CUP PO PRN (15:55)
[2025-04-19] MEDS: ALBUTEROL SO4 HFA INHALER IH PRN (19:07)
[2025-04-20] MEDS: ACETAMINOPHEN 325 MG TABLET (FP) PO PRN (02:27)
[2025-04-20] MEDS: BENZOCAINE 20 % GEL TUBE MM PRN (14:56)
[2025-05-08 06:11] VITALS: RESP 18
[2025-05-11 05:14] VITALS: TEMP 97.1
[2025-05-11 08:59] VITALS: BP 137/98; PULSE 79
== END 2025-05-11 10:00 | disposition home or self-care (01) | DRG 772 ==
LOC: YASAS 12:22 → Y3NR 12:24 → Y3W 04-13 11:32
PROVIDERS: ADMIT Psychiatry & Neurology Pain Medicine; ATTEND Psychiatry & Neurology Pain Medicine
PROC: HZ42ZZZ Group Counseling for Substance Abuse Treatment, Cognitive-Behavioral (ICD-10-PCS; principal; 2025-04-12)
DX: F11.20 Opioid dependence, uncomplicated (principal); F17.210 Nicotine dependence, cigarettes, uncomplicated; F19.282 Other psychoactive substance dependence with psychoactive substance-induced sleep disorder; F19.24 Other psychoactive substance dependence with psychoactive substance-induced mood disorder; F25.9 Schizoaffective disorder, unspecified; G62.9 Polyneuropathy, unspecified; I10 Essential (primary) hypertension; J44.9 Chronic obstructive pulmonary disease, unspecified; J45.20 Mild intermittent asthma, uncomplicated; K21.9 Gastro-esophageal reflux disease without esophagitis; K08.89 Other specified disorders of teeth and supporting structures; N40.0 Benign prostatic hyperplasia without lower urinary tract symptoms; L02.214 Cutaneous abscess of groin; Z99.89 Dependence on other enabling machines and devices
CPT/HCPCS: 36415; 86803; 87522